=== PATIENT | female | born 1995 | race Caucasian/White ===

== ENCOUNTER 2017-02-03 08:53 | Emergency (ER) | payer SELFPAY ==
[2017-02-03] MEDS ORDERED: cefTRIAXone SODIUM 1 GM VIAL IM ONE (10:05)
[2017-02-03] MEDS ORDERED: AZITHROMYCIN 250 MG TAB PO ONE (10:05)
--- NOTE | 2017-02-03 10:12 | ED.PDOC ---
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 This is her first . No intercourse last night. No other discharge. No pelvic pain. No fever. She is taking vitamins. She has not yet gotten set up with an research professional. She is uncertain of her blood type. Spotting started 4-6 hours ago. Timing/Duration: 4-6 hours Severity: mild Improving Factors: nothing Worsening Factors: nothing Associated Symptoms: denies symptoms Allergies/Adverse Reactions: Allergies NO KNOWN ALLERGY Allergy (Verified 02/03/17 09:06) Home Medications: Ambulatory Orders Cephalexin Monohydrate [Keflex] 500 mg PO Q8H #15 cap 02/03/17 Vit W/ Ferrous Fumara [] 1 tab PO DAILY 02/03/17 Review of Systems - Review of Systems Constitutional: States: no symptoms reported EENTM: States: no symptoms reported Respiratory: States: no symptoms reported Cardiology: States: no symptoms reported Gastrointestinal/Abdominal: States: no symptoms reported Genitourinary: States: see HPI Musculoskeletal: States: no symptoms reported Skin: States: no symptoms reported Neurological: States: no symptoms reported Endocrine: States: no symptoms reported Hematologic/Lymphatic: States: no symptoms reported All other Systems: No Change from Baseline Past Medical History (General) - Patient Medical History Hx Seizures: No Hx Stroke: No Hx Dementia: No Hx Asthma: No Hx of COPD: No Hx Cardiac Disorders: No Hx Congestive Heart Failure: No Hx Pacemaker: No Hx Hypertension: No Hx Thyroid Disease: No Hx Diabetes: No Hx Gastroesophageal Reflux: No Hx Renal Disease: No Hx Cancer: No Hx of HIV: No Hx Hepatitis C: No Hx MRSA: No Surgical History: no surgical history - Vaccination History Hx Tetanus, Diphtheria Vaccination: No Hx Influenza Vaccination: No Hx Pneumococcal Vaccination: No - Social History Hx Tobacco Use: Yes Hx Chewing Tobacco Use: No Hx Alcohol Use: No Hx Substance Use: No Hx Substance Use Treatment: No Hx Depression: No Hx Physical Abuse: No Hx Emotional Abuse: No - Female History Patient is a Female of Child Bearing Age (10 -59 yrs old): Yes Patient : Yes Family Medical History - Family History Mother Family History: Unknown Physical Exam - Physical Exam General Appearance: Alert, Comfortable, No apparent distress Eye Exam: bilateral normal Ears, Nose, Throat: hearing grossly normal, normal ENT inspection Neck: non-tender, full range of motion Respiratory: no respiratory distress, no accessory muscle use Cardiovascular/Chest: normal peripheral pulses, no edema, other - regular rate Peripheral Pulses: radial,right: 2+, radial,left: 2+ Gastrointestinal/Abdominal: non tender, soft Rectal Exam: deferred Back Exam: no CVA tenderness, no vertebral tenderness Extremity: normal range of motion, non-tender, normal inspection, no pedal edema , normal capillary refill Neurologic: elevated motorman II-XII nml as tested, alert, normal mood/affect, oriented x 3 Skin Exam: normal color Comments: Vital Signs - 24 hr 02/03/17 09:00 Temperature 98.6 F Pulse Rate [ 100 H pulse ox] Respiratory 20 Rate Blood Pressure 116/75 [Left Arm] O2 Sat by Pulse 95 Oximetry Progress - Progress Progress: 02/03/17 10:13 the patient is a 21-year-old female presenting to the emergency room with what is considered to be a threatened miscarriage. Gestational sac does appear to be appropriate within the uterus with a fetus with cardiac motion and an anterior placenta. Given the reassuring low-resolution ultrasound, a pelvic exam was not performed in order to reduce uterine irritability at this time. The patient does have a significant urinary tract infection and is being given a dose of Rocephin and azithromycin here. Additionally she'll be placed on Keflex 3 times daily for the next 5 days. She does need follow-up with Dr. Nugent later this week for a repeat urinalysis. Urine culture is being performed here. Pelvic rest is recommended. ER warnings were given for any significant worsening. Blood type is A+. - Results/Orders Results/Orders: Laboratory Tests 02/03/17 02/03/17 02/03/17 09:50 09:50 09:50 WBC 11.1 H RBC 4.83 Hgb 13.2 Hct 38.9 MCV 80.6 L MCH 27.4 MCHC 33.9 RDW 13.6 Plt Count 267 MPV 8.3 Absolute Neuts (auto) 7.20 H Absolute Lymphs (auto) 2.60 Absolute Monos (auto) 1.10 H Absolute Eos (auto) 0.10 Absolute Basos (auto) 0.10 Neutrophils % 64.3 Lymphocytes % 23.7 Monocytes % 9.9 H Eosinophils % 1.3 Basophils % 0.8 Urine Color Yellow Urine Appearance Sl cloudy Urine pH 6.0 Ur Specific [place] >= 1.030 Urine Protein 30 Urine Glucose (UA) Negative Urine Ketones Trace Urine Blood Large H Urine Nitrite Negative Urine Bilirubin Small H Urine Urobilinogen 0.2 Ur Leukocyte Esterase Moderate H Urine RBC 5-10 H Urine WBC 10-20 H Ur Epithelial Cells Tntc Urine Bacteria 4+ H Patient ABO/Rh A POSITIVE low resolution ultrasound performed by me shows a gestational sac within the uterus consistent with dates. heart activity is present. Anterior placenta. Departure - Departure Clinical Impression: Threatened Disposition: Discharge to Home or Self Care Condition: Fair Departure Forms: ED Discharge - Pt. Copy, Patient Portal Self Enrollment Instructions: DI for Threatened Diet: regular diet Activity: increase activity as tolerated, other - pelvic rest Prescriptions: Cephalexin Monohydrate [Keflex] 500 mg PO Q8H #15 cap Home Medications: Ambulatory Orders Cephalexin Monohydrate [Keflex] 500 mg PO Q8H #15 cap 02/03/17 Vit W/ Ferrous Fumara [] 1 tab PO DAILY 02/03/17 Additional Instructions: the patient is a 21-year-old female presenting to the emergency room with what is considered to be a threatened miscarriage. Gestational sac does appear to be appropriate within the uterus with a fetus with cardiac motion and an anterior placenta. Given the reassuring low-resolution ultrasound, a pelvic exam was not performed in order to reduce uterine irritability at this time. The patient does have a significant urinary tract infection and is being given a dose of Rocephin and azithromycin here. Additionally she'll be placed on Keflex 3 times daily for the next 5 days. She does need follow-up with Dr. Nugent later this week for a repeat urinalysis. Urine culture is being performed here. Pelvic rest is recommended. ER warnings were given for any significant worsening. Blood type is A+.
[2017-02-03 10:30] VITALS: BP 98/67; O2SAT 97
[2017-02-03 10:38] VITALS: TEMP 97.9
== END 2017-02-03 10:38 | disposition home or self-care (01) ==
LOC: ER 08:53
DX: O20.0 Threatened abortion (principal); Z3A.10 10 weeks gestation of pregnancy
CPT/HCPCS: 36415; 81001; 85025; 86900; 86901; 87086; J0696; Q0144